=== PATIENT | female | born 1975 | race Caucasian/White ===

== ENCOUNTER → 2017-11-24 | Outpatient (CLI) | payer BC ==
[~2017-11-24] MED LIST: ACET-3017 PO; DEXL60CA6 PO; DIPH-1 PO; GADOBENATE 529MG/1ML 15ML VIAL IVP ONE; LEVO150T78 PO; LEVO200T44 PO; NS 0.9% 20 ML SDV 40 ML ONE; [UNRECOGNIZED DRUG - REMARK] PO
--- NOTE | 2017-11-24 15:25 | RADIOLOGY IMAGING REPORT ---
FACILITY: [facility] PATIENT NAME: Kylee Braswell : 1975 MR: [id number] V: [id number] EXAM DATE: ORDERING PHYSICIAN: SALVATORE PINTO TECHNOLOGIST: Location: Patient: Kylee Braswell : 1975 Visit/Account:[id number] Date of Sevice: 11/24/2017 ABDOMEN W W/O CONTRAST HISTORY: Abdominal wall mass ADDITIONAL HISTORY: None. TECHNIQUE: TECHNIQUE: Multiplanar multisequence magnetic resonance imaging of the abdomen with and without intravenous contrast. CONTRAST: 15 mL of MultiHance COMPARISON: MR abdomen June 27, 2017 FINDINGS: Visualized lung bases: Grossly unremarkable. Liver: Negative. Gallbladder: Surgically absent no evidence of biliary ductal dilatation Bile ducts: Nondistended and unremarkable. Spleen: Negative. Adrenal glands: Negative. Pancreas: Negative. Kidneys: Negative. Vessels/spaces/nodes: No bulky adenopathy or ascities. Visualized GI: Grossly unremarkable. Bones/soft tissues: When compared to the prior study reidentified is an enhancing infiltrative mass a long the left ventral abdominal wall involving the left rectus muscle extending anteriorly into the s ubcutaneous tissues. There is enhancement of the underlying rectus sheath as well similar to the delfino or study. The mass unchanged in size measuring approximately 11.6 cm in transverse dimension, 3.7 cm AP dimension and 12.7 cm in craniocaudad direction. The mass bows the rectus sheath posteriorly alt mohit no direct invasion into the intraperitoneal cavity IMPRESSION: Compared the prior MR of June 27, 2017 again noted is the enhancing infiltrative mass along the l eft ventral abdominal wall involving the left rectus sheath extending anteriorly into the subcutaneou s tissues with enhancement of the underlying rectus sheath. The mass appears relatively unchanged in size as detailed above As previously noted the differential diagnosis would include scar/fibrous tissue versus desmoid tumor versus endometriosis. More aggressive malignancy again is not totally excluded. Report Dictated By: Ania Enamorado MD at 11/24/2017 2:51 PM Report E-Signed By: Ania Enamorado MD at 11/24/2017 3:21 PM WSN:[email or web address]
== END ==
LOC: MRI 11-17 03:46
PROVIDERS: ATTEND Surgery
DX: R22.2 Localized swelling, mass and lump, trunk (principal)
CPT/HCPCS: 74183; A9577; J7050

== ENCOUNTER → 2018-02-22 | Outpatient (CLI) | payer BC ==
--- NOTE | 2018-02-22 15:10 | RADIOLOGY IMAGING REPORT ---
FACILITY: [facility] [place] PATIENT NAME: Kylee Braswell : 1975 MR: [id number] V: [id number] EXAM DATE: ORDERING PHYSICIAN: SALVATORE PINTO TECHNOLOGIST: Location: [facility] Patient: Kylee Braswell : 1975 Visit/Account:[id number] Date of Sevice: 02/22/2018 EXAMINATION: MR Abdomen and Pelvis Without and With Contrast 02/22/2018 7:34 AM HISTORY: Abdominal mass w/change in location and new onset tenderness TECHNIQUE: Multiplanar multisequence MR imaging of the abdomen and of the pelvis was done before and after intravenous contrast administration. Contrast: 20 mL of IV MultiHance. COMPARISON STUDIES: 11/24/2017. FINDINGS: Liver / biliary: Prior cholecystectomy. CBD caliber is unchanged. Liver is negative. Pancreas: negative Spleen: Stable small posterior accessory splenule. Adrenal glands: negative Kidneys / retroperitoneum: negative Pelvic structures: Prior hysterectomy. Ovaries also appear to be absent. Bowel / peritoneum / mesenteries: negative Vessels: Incidental circumaortic left renal vein with an inferior retroaortic component. Musculoskeletal / Body wall: Poorly defined infiltrative enhancing mass in the left ventral abdominal wall is again shown. There are 3 areas of primary enhancement, one just to left of midline in the s uperior aspect, secondary to inferolateral to this on the left and the third area further inferolater al to that towards the left. The overall process measures roughly 14 cm craniocaudal by about 9 cm t ransverse by 2.4 cm AP. The overall appearance is little changed comparing back to 06/27/2017, with some differences in measurement due to indistinct margins of the process. The left inferolateral asp ect of this has the deepest extension of enhancement down to the posterior surface of the abdominal w all, but there is no definite direct extension deep to the abdominal wall fascial plane, although the fascial margin is indistinct (pelvis images series 2, image 8 and postcontrast series 11 image 4). No new satellite finding is demonstrated elsewhere. Visualized bone marrow signal is unremarkable. Lymph node assessment: negative Lower chest: negative IMPRESSION: Poorly defined infiltrative mass in the left ventral abdominal wall is little changed comparing back to 06/27/2017 as discussed above. Report Dictated By: Perfecto Hernandez MD at 02/22/2018 2:18 PM Report E-Signed By: Perfecto Hernandez MD at 02/22/2018 3:06 PM WSN:[email or web address]
--- NOTE | 2018-02-22 15:11 | RADIOLOGY IMAGING REPORT ---
FACILITY: [facility] - [place] PATIENT NAME: Kylee Braswell : 1975 MR: [id number] V: [id number] EXAM DATE: ORDERING PHYSICIAN: SALVATORE PINTO TECHNOLOGIST: Location: [facility] [place] Patient: Kylee Braswell : 1975 Visit/Account:[id number] Date of Sevice: 02/22/2018 EXAMINATION: MR Abdomen and Pelvis Without and With Contrast 02/22/2018 7:34 AM HISTORY: Abdominal mass w/change in location and new onset tenderness TECHNIQUE: Multiplanar multisequence MR imaging of the abdomen and of the pelvis was done before and after intravenous contrast administration. Contrast: 20 mL of IV MultiHance. COMPARISON STUDIES: 11/24/2017. FINDINGS: Liver / biliary: Prior cholecystectomy. CBD caliber is unchanged. Liver is negative. Pancreas: negative Spleen: Stable small posterior accessory splenule. Adrenal glands: negative Kidneys / retroperitoneum: negative Pelvic structures: Prior hysterectomy. Ovaries also appear to be absent. Bowel / peritoneum / mesenteries: negative Vessels: Incidental circumaortic left renal vein with an inferior retroaortic component. Musculoskeletal / Body wall: Poorly defined infiltrative enhancing mass in the left ventral abdominal wall is again shown. There are 3 areas of primary enhancement, one just to left of midline in the s uperior aspect, secondary to inferolateral to this on the left and the third area further inferolater al to that towards the left. The overall process measures roughly 14 cm craniocaudal by about 9 cm t ransverse by 2.4 cm AP. The overall appearance is little changed comparing back to 06/27/2017, with some differences in measurement due to indistinct margins of the process. The left inferolateral asp ect of this has the deepest extension of enhancement down to the posterior surface of the abdominal w all, but there is no definite direct extension deep to the abdominal wall fascial plane, although the fascial margin is indistinct (pelvis images series 2, image 8 and postcontrast series 11 image 4). No new satellite finding is demonstrated elsewhere. Visualized bone marrow signal is unremarkable. Lymph node assessment: negative Lower chest: negative IMPRESSION: Poorly defined infiltrative mass in the left ventral abdominal wall is little changed comparing back to 06/27/2017 as discussed above. Report Dictated By: Perfecto Hernandez MD at 02/22/2018 2:18 PM Report E-Signed By: Perfecto Hernandez MD at 02/22/2018 3:06 PM WSN:[email or web address]
== END ==
LOC: MRI 01:59
PROVIDERS: ATTEND Surgery
DX: Z90.49 Acquired absence of other specified parts of digestive tract (principal); Z90.710 Acquired absence of both cervix and uterus
CPT/HCPCS: 72197; 74183; A9577; J7050

== ENCOUNTER → 2018-10-23 | Outpatient (CLI) | payer BC ==
[~2018-10-23] MED LIST changes: -NS 0.9% 20 ML SDV 40 ML ONE; +NS(*) 0.9% 50 ML BAG 50 ML ONE
--- NOTE | 2018-10-23 15:02 | RADIOLOGY IMAGING REPORT ---
FACILITY: [facility] PATIENT NAME: Kylee Braswell : 1975 MR: [id number] V: [id number] EXAM DATE: ORDERING PHYSICIAN: SALVATORE PINTO TECHNOLOGIST: Location: [facility] - [place] Patient: Kylee Braswell : 1975 Visit/Account:[id number] Date of Sevice: 10/23/2018 MR ABDOMEN W & W/O CON HISTORY: Abdominal wall mass. TECHNIQUE: Multiplanar multisequence magnetic resonance imaging of the abdomen without and with intr avenous contrast. CONTRAST: 15 mL MultiHance IV COMPARISON: MRI 02/22/2018, CT 06/22/2017 FINDINGS: Visualized lung bases: Negative. Liver: Diminutive right portal vein with caudate and left hepatic lobe hypertrophy, unchanged. Morph ology otherwise unremarkable and no MR evident steatosis or discrete hepatic lesion. Gallbladder: Surgically absent. Bile ducts: Extrahepatic biliary tree prominent but unchanged and likely chronic post cholecystectomy . Spleen: Small accessory splenule posterior, normal variant. Adrenals: Negative. Pancreas: Pancreas divisum, normal variant, without ductal obstruction or sequela of pancreatitis. Kidneys/: Negative. Visualized GI: Sequela of subtotal colectomy. Vessels/spaces/nodes: No adenopathy. Circumaortic left renal vein, normal variant. Bones/soft tissues: Fatty atrophy of the rectus musculature bilateral. Sequela of prior ventral wal l incisions/surgery. Several thick-walled fluid-filled foci persist within the ventral wall and with surrounding edema. These include collections approximately 11-12 cm above the umbilicus at midline measuring 1.4 x 2.1 x 2.8 cm, approximately 4-5 cm above the umbilicus and just to the left of midlin e measuring 1.0 x 1.1 x 3.0 cm and just lateral to umbilicus measuring approximately 1.8 x 2.1 x 6.3 cm. The smallest and most superior collection is within the deep subcutaneous tissues between the re ctus sheaths. The larger collections are within the subcutaneous tissues and extending into the left rectus sheath allowing for differences in imaging in measurement technique. Although a marking yana ce indicating patient's site of symptoms overlies the lateral aspects of the larger two collections, there is been no significant interval change in their appearance and with surrounding ill-defined enh ancement following contrast administration. Mild disc degenerative changes lumbar spine with slight mid to inferior lumbar levocurvature. IMPRESSION: Nonspecific changes of the left upper quadrant ventral wall detailed above and grossly unchanged when compared to prior exams dating back to at least 06/2017. Given the stability of these findings, the y are favored to represent chronic postsurgical changes and although superimposed infection would be difficult to exclude, there is no new surrounding edema or enhancement to otherwise suggest such by t his exam. Report Dictated By: Elijah Chaparro MD at 10/23/2018 2:23 PM Report E-Signed By: Elijah Chaparro MD at 10/23/2018 2:58 PM WSN:[email or web address]
== END ==
LOC: MRI 01:48
PROVIDERS: ATTEND Surgery
DX: K83.8 Other specified diseases of biliary tract (principal); Z90.49 Acquired absence of other specified parts of digestive tract
CPT/HCPCS: 74183; A9577; J7050

== ENCOUNTER → 2018-11-28 | Outpatient (REF) | payer BC ==
[~2018-11-28] MED LIST changes: -GADOBENATE 529MG/1ML 15ML VIAL IVP ONE; -NS(*) 0.9% 50 ML BAG 50 ML ONE
[2018-11-28 18:53] LABS: PLATELET COUNT, AUTOMATED 273 K/uL (150-450)
== END ==
PROVIDERS: ATTEND Nurse Practitioner Family
DX: N63.20 Unspecified lump in the left breast, unspecified quadrant (principal)
CPT/HCPCS: 82040; 82247; 82310; 82374; 82435; 82565; 82947; 84075; 84132; 84155; 84295; 84450; 84460; 84520; 85025

== ENCOUNTER 2018-11-29 08:11 | Outpatient (RCR) | payer BC ==
--- NOTE | 2018-11-29 15:48 | RADIOLOGY IMAGING REPORT ---
FACILITY: [facility] - [place] PATIENT NAME: CARRI CARRION : [id number] MR: [id number] V: [id number] EXAM DATE: [id number] ORDERING PHYSICIAN: SALVATORE DUBON TECHNOLOGIST: Fallon Hoover RDMS PROCEDURE:US LEFT BREAST COMPARISON:None. INDICATIONS:Left breast swelling and pain with anathema FINDINGS: From the 3 o'clock 4 o'clock and 5 o'clock positions of the Left breast there is increased echogensity of lobular breast tissue which appears different than the remainder of the breast tissue. There are several mildly dilated ducts. There is no demonstration of an abscess. There is mild skin thickening in this location. Given the relatively acute history this may represent an area of mastitis and cellulites. Differential diagnosis would also include inflammatory breast cancer therefore if the patient does not respond to antibiotic therapy Ultrasound guided core biopsy is recommended. DIAGNOSTIC CATEGORY 3--PROBABLY BENIGN FINDING. RECOMMENDATIONS: ONE MONTH FOLLOW-UP ULTRASOUND: LEFT BREAST. IMPRESSION: BIRADS 3: Probably benign finding. A short term interval follow-up Left breast Ultrasound is recommended following antibiotic therapy. If the patient does not respond to antibiotic therapy a Ultrasound guided core biopsy of the area of swelling in the 3-5 o'clock position of the Left breast recommended to exclude inflammatory breast cancer. The findings were discussed with Nahun Cohen at approximately 9:45am on 11/29/18. Dictated by: Ania Enamorado M.D. on 11/29/2018 at 10:00 Transcribed by: ESBASTIAN on 11/29/2018 at 15:07 Approved by: Ania Enamorado M.D. on 11/29/2018 at 15:47 [facility]
[2018-11-30] MEDS ORDERED: SULF-198 PO (11:23)
[2018-11-30] MEDS ORDERED: LEV125 PO (13:54)
--- NOTE | 2018-12-03 13:05 | RADIOLOGY IMAGING REPORT ---
FACILITY: [facility] - [place] PATIENT NAME: CARRI CARRION : [id number] MR: [id number] V: [id number] EXAM DATE: [id number] ORDERING PHYSICIAN: SALVATORE DUBON TECHNOLOGIST: Didi William PROCEDURE:BILATERAL DIAGNOSTIC DIGITAL MAMMOGRAM WITH CAD ASSISTED INTERPRETATION & 3D TOMOSYNTHESIS COMPARISON:Prior mammograms 07/24/13, 12/06/06, 05/19/06. INDICATIONS:Painful swollen Left breast FINDINGS: There are scattered areas of fibroglandular density throughout the breasts. There is an asymmetry in the anterior depth of the Right breast just posterior to the mid nipple line on the Right MLO view. This appears more prominent when compared to the prior studies. There is increased density in the mid and posterior depth of the Left breast posterior to mid nipple line on the Left CC view and also posterior to mid nipple line on the Left MLO view that appears more prominent when compared to the prior study. This would account for the recent sonographic findings of probable edema. DIAGNOSTIC CATEGORY 3--PROBABLY BENIGN FINDING. RECOMMENDATIONS: ONE MONTH FOLLOW-UP ULTRASOUND: LEFT BREAST. IMPRESSION: BIRADS 3: Probably benign finding. Area of increased density posterior to mid nipple line and mid and posterior depth of the Left breast correspond to the area of edema seen on the recent Left breast Ultrasound. As noted in the Ultrasound report this maybe secondary to mastitis. A short interval follow-up Left breast Ultrasound is recommended and antibiotic treatment and to exclude possibility of inflammatory carcinoma. If the patient does not respond to therapies Ultrasound guided core biopsy recommended of the Left breast. Dictated by: Ania Enamorado M.D. on 12/03/2018 at 8:17 Transcribed by: SEBASTIAN on 12/03/2018 at 9:49 Approved by: Ania Enamorado M.D. on 12/03/2018 at 13:05 [facility] [employer] [employer]
[2018-12-03] MEDS ORDERED: SULF-198 PO (15:18)
== END 2018-11-29 18:00 | disposition home or self-care (01) ==
LOC: EDSTATUS 08:11 → US 08:11
PROVIDERS: ATTEND Nurse Practitioner Family
DX: N63.20 Unspecified lump in the left breast, unspecified quadrant (principal)
CPT/HCPCS: 77062; 77066